=== PATIENT | male | born 1980 | race Caucasian/White ===

== ENCOUNTER 2017-03-02 08:41 | Emergency (ER) | payer OTHER | END 2017-03-02 11:02 | disposition home or self-care (01) | LOC: FER 08:41 | DX: H66.93 Otitis media, unspecified, bilateral (principal); J01.90 Acute sinusitis, unspecified; R50.9 Fever, unspecified; F17.210 Nicotine dependence, cigarettes, uncomplicated | CPT/HCPCS: J2930 ==

== ENCOUNTER 2022-03-16 23:31 | Emergency (ER) | payer OTHER ==
[2022-03-16 23:59] LABS: HCT 41.3 % (42.0-52.0); HGB 14.4 g/dl (13.2-18.0); MCH 29.3 pg (25.0-31.0); MCHC 34.9 g/dL (32.0-36.0); MCV 84.1 fL (78.0-100.0); MPV 9.2 fL (6.0-9.5); RBC 4.91 M/uL (4.70-6.00); RDW 13.4 % (11.5-14.0); WBC 9.4 K/uL (4.0-10.5)
[2022-03-17 00:25] LABS: BUN/CREAT RATIO (CALC) 14.4 RATIO; CREATININE 1.04 mg/dL (0.67-1.17); POTASSIUM 3.8 mmol/L (3.5-5.1)
== END 2022-03-17 01:15 | disposition home or self-care (01) ==
LOC: FER 23:31
PROVIDERS: Emergency Medicine
DX: I10 Essential (primary) hypertension (principal); R07.89 Other chest pain; X30.XXXA Exposure to excessive natural heat, initial encounter
CPT/HCPCS: 36415; 80048; 84484; 93005